=== PATIENT | male | born 1985 | race Two or more races ===

== ENCOUNTER 2021-03-16 11:35 | Emergency (ER) | payer SELFPAY ==
[~2021-03-16] VITALS: Ht 170.2 cm; Wt 79.4 kg
[2021-03-16 12:08] VITALS: BP 97/52
[2021-03-16] MEDS ORDERED: BACITRACIN TOP OINT 1 UD PKG TOP ONE (13:00)
[2021-03-16] MEDS ORDERED: ACETAMINOPHEN 325 MG TAB PO ONE (13:00)
[2021-03-16] MEDS ORDERED: TETANUS-DIPTH-ACEL PERTUSSIS 0.5ML SYR Tdap IM ONE (13:00)
== END 2021-03-16 13:40 | disposition home or self-care (01) ==
LOC: ER 11:35
DX: S81.811A Laceration without foreign body, right lower leg, initial encounter (principal); W54.0XXA Bitten by dog, initial encounter; Y93.89 Activity, other specified; Y92.89 Other specified places as the place of occurrence of the external cause; Y99.8 Other external cause status
CPT/HCPCS: 90471; 90715